=== PATIENT | male | born 1955 | race Caucasian/White ===

== ENCOUNTER 2017-02-05 06:59 | Day surgery (SDC) | payer BC ==
[~2017-02-05] VITALS: Ht 177.8 cm; Wt 105.0 kg
[~2017-02-05 06:59] MED LIST: ASPIRIN81 M1 PO; COREG; COREG25 M1 PO; COZAAR100 MG PO; DUEXIS 800-26.1 EACH PO; ECOTRIN325 MG PO; FENOFIBRATE160 M1 PO; FLUOXETINE HCL40 MG PO; HYZAAR; NEXIUM40 MG PO; POTASSIMIN75 MG PO; POTASSIUM CHLO10 ME3 PO; SIMVASTATIN; TRICOR
[2017-02-05 07:22] VITALS: BP 138/86
[2017-02-05 10:25] VITALS: BP 129/89
[2017-02-05 10:55] VITALS: BP 135/83
== END 2017-02-05 11:07 | disposition home or self-care (01) ==
LOC: SDC 06:59
PROC: 0SBD4ZZ Excision of Left Knee Joint, Percutaneous Endoscopic Approach (ICD-10-PCS; principal; 2017-02-05)
DX: M23.204 Derangement of unspecified medial meniscus due to old tear or injury, left knee (principal); I10 Essential (primary) hypertension; I25.2 Old myocardial infarction; M10.9 Gout, unspecified; Z82.49 Family history of ischemic heart disease and other diseases of the circulatory system; Z79.82 Long term (current) use of aspirin; Z87.891 Personal history of nicotine dependence
CPT/HCPCS: J0690; J1100; J1885; J2250; J2405; J2795; J3010